=== PATIENT | male | born 1980 | race Two or more races ===

== ENCOUNTER 2016-12-18 19:02 | Emergency (ER) | payer SELFPAY ==
[~2016-12-18] VITALS: Ht 182.9 cm; Wt 112.5 kg
[2016-12-18] MEDS ORDERED: NIFEdipine 10 MG CAP PO ONE (19:30)
[2016-12-18 19:33] LABS: Basophils # (auto) 0.1 uL; Basophils % (auto) 0.6 % (0.0-2.0); Eosinophils # (auto) 0.4 uL; Eosinophils % (auto) 4.1 % (0.0-7.0); Hematocrit 46.8 % (41.0-53.0); Hemoglobin 15.8 g/dL (13.5-17.5); Lymphocytes # (auto) 2.7 uL; Lymphocytes % (auto) 28.1 % (10.0-50.0); Mean Corpuscular Hgb Conc. 33.8 g/dL (32.0-36.0); Mean Corpuscular Volume 88.7 fL (80.0-100.0); Mean Platelet Volume 8.5 fL (7.4-10.4); Monocytes # (auto) 0.7 uL; Monocytes % (auto) 7.5 % (0.0-12.0); Neutrophils # (auto) 5.7 uL; Neutrophils % (auto) 59.7 % (37.0-80.0); Platelet Count (auto) 276 10^3/uL (140-450); Red Cell Distribution Width 14.2 % (11.6-16.0); White Blood Cell 9.5 10^3/uL (4.4-10.8)
[2016-12-18 19:33] LABS: Urine RBC None Seen /hpf (0 - 3)
[2016-12-18 19:43] LABS: Urine Bilirubin Negative (Negative); Urine Blood Negative /uL (Negative); Urine Color Yellow (Yellow); Urine Glucose Normal (Normal); Urine Ketone Negative (Negative); Urine Nitrite Negative (Negative); Urine pH 6.5 (5.0-8.0)
[2016-12-18 19:49] LABS: INR 0.94 (0.9-1.15); Prothrombin Time 10.2 sec (9.37-12.3)
[2016-12-18 19:57] LABS: Albumin 3.9 g/dL (3.4-5.0); Alkaline Phosphatase 83 U/L (45-117); Anion Gap 8 (5-15); Aspartate Aminotransferase 33 U/L (15-37); BUN/Creatinine Ratio 16.2; Bilirubin, Total 1.3 mg/dL (0.2-1.0); Blood Urea Nitrogen 16 mg/dL (7-18); Calcium 8.6 mg/dL (8.5-10.1); Carbon Dioxide 29 mmol/L (21-32); Chloride 102 mmol/L (98-107); GFR African American 110 mL/min; GFR Non-African American 91 mL/min; Glucose 107 mg/dL (74-106); Sodium 139 mmol/L (136-145); Total Protein 7.7 g/dL (6.4-8.2)
[2016-12-19] MEDS ORDERED: HYDROcodone-ACET 5/325MG TAB PO ONE (02:45)
[2016-12-19 04:32] VITALS: BP 139/91
== END 2016-12-19 04:48 | disposition home or self-care (01) ==
LOC: ER 19:12
DX: I10 Essential (primary) hypertension (principal); R51 Headache; R07.9 Chest pain, unspecified; F12.10 Cannabis abuse, uncomplicated; F15.10 Other stimulant abuse, uncomplicated
CPT/HCPCS: 36415; 71010; 80053; 80307; 81001; 84484; 85025; 85610; 85730; 93005

== ENCOUNTER 2025-02-25 18:38 | Emergency (ER) | payer MEDICAID, OTHER ==
--- NOTE | 2025-02-25 19:07 | ED.PDOC ---
History of Present Illness HPI Comments 44-year-old male, with a history of asthma and polysubstance abuse, presents with chief complaint of shortness of breath, which began unprovoked, last night. Use endorsement prior to arrival. Is having any chest pain, cough, congestion, fever, chills, or further associated symptoms. Only significant recent history of CVA with hospital admission at [facility] 1 week ago. Time Seen by MD: 18:55 Primary Care Provider: NONE Reviewed Notes: Nurses Notes, Medications, Allergies Allergies: Coded Allergies: NO KNOWN ALLERGIES (Unverified , 12/14/13) Information Source: Patient Mode of Arrival: Ambulatory Severity: Moderate Timing: Hours Duration: Since onset Prehospital treatment: None Review of Systems: REVIEW OF SYSTEMS: No fever, no chills, or fatigue HEENT: No sore throat, no earache, no congestion, no neck pain. Cardiac: No chest pain. No palpitations. Lungs: Shortness of breath, no cough. GI: No nausea, no vomiting, no diarrhea, no constipation, no abdominal pain : No dysuria, frequency, or urgency. No hematuria. Musculoskeletal: No joint pain , no joint swelling, no extremity edema. Skin: No rash, no itching. Neuro: No headache, no dizziness, no weakness Physical Exam General: Awake, alert and oriented. No acute distress but anxious appearing Skin: Skin in warm, dry and intact. Appropriate color for ethnicity. HEENT: The head is normocephalic and atraumatic. Conjunctivae are clear without exudates or hemorrhage. Sclera is non-icteric. EOM are intact. No signs of nystagmus. Eyelids are normal in appearance without swelling or lesions. Oral mucosa is pink and moist Neck: The neck is supple with normal range of motion. No JVD. Cardiac: Heart rate and rhythm are normal. No murmurs, gallops, or rubs are auscultated. Respiratory: No signs of respiratory distress. Lung sounds are clear in all lobes bilaterally without rales, rhonchi, or wheezes. Abdominal: Abdomen is soft, non-tender without distention, guarding or rigidity. Bowel sounds are present and normoactive in all four quadrants. Extremities: Upper and lower extremities are atraumatic in appearance without deformity or edema. Neurological: The patient is awake, alert and oriented to person, place, and time with normal speech. Speech is clear. There is no facial asymmetry. Psychiatric: Appropriate mood but anxious affect. Good judgement and insight. Past Medical History PAST MEDICAL HISTORY: Asthma Surgical History: Denies all surgeries Family History Family History: Unknown Social History Smoker: Non-Smoker Alcohol: Heavy Drugs: Marijuana, Methamphetamine Lives In: Home Was a procedure done? Was a procedure done?: No Differential Dx Considerations may include: Differential diagnoses considered includebut arenot limited to acute Bronchitis, Asthma, COPD, Pneumothorax, PE, CHF, Pulmonary HTN, Anemia, CO Poisoning, Methemoglobinemia, Hyperventilation, Metabolic Acidosis, Pulmonary Edema, Pneumonia, ACS, Pericardial Tamponade, Anxiety, other Time of 1ST Reevaluation: 19:25 Reevaluation 1ST: Unchanged Patient Education/Counseling: Treatment, Need For Follow Up Family Education/Counseling: No Family Present Departure 1 Departure Time of Disposition: 20:21 Impression: Primary Impression: Shortness of breath Additional Impression: Eloped from emergency department Disposition: LEFT AWOL/ELOPED Condition: Other Comments PATIENT WAS SEEN AND EVALUATED. DISCUSSED PLAN OF CARE WITH THE PATIENT. HE ELOPED FROM THE EMERGENCY DEPARTMENT PRIOR TO COMPLETING EVALUATION. I reviewed the following notes from the pt's past medical encounters: December 14, 2013 and December 18, 2016 encounters for left arm and headache, possible high BP Critical Care Note Critical Care Time?: No Stability Stability form required: No Heart Score Heart Score: Heart Score Response (Comments) Value History N/A 0 EKG N/A 0 Age N/A 0 Risk Factors N/A 0 Troponin N/A 0 Total 0 I personally scribed for AMADOR MCKEON MD ([email or web address]) on 02/25/25 at 19:07. Electronically submitted by Luis Logan ([email or web address]). AMADOR MCKEON MD Feb 25, 2025 19:07
[2025-02-25] MEDS: ALBUTEROL SULF 2.5 MG/0.5ML(0.5%) NEB SOLN NEB ONE (19:10)
== END 2025-02-25 19:41 | disposition left against medical advice (07) ==
LOC: ER 18:38
DX: R06.02 Shortness of breath (principal); J45.909 Unspecified asthma, uncomplicated; F12.90 Cannabis use, unspecified, uncomplicated; F19.90 Other psychoactive substance use, unspecified, uncomplicated; F10.10 Alcohol abuse, uncomplicated; Z86.73 Personal history of transient ischemic attack (TIA), and cerebral infarction without residual deficits; Y90.9 Presence of alcohol in blood, level not specified

== ENCOUNTER 2025-04-05 08:57 | Outpatient (CLI) | payer MEDICAID ==
[2025-04-05 09:10] VITALS: BP 93/65; PULSE 65; RESP 16
[2025-04-05] MEDS ORDERED: IOHEXOL 350 MG/ML 100ML IJ ONE (09:12)
--- NOTE | 2025-04-05 12:27 | DVH ---
CT CHST AB PEL WO CON-NO IV/ORAL INDICATION: R/O DISECTION EXAM DATE: 04/05/2025 09:34 AM COMPARISON: None prior images RADIATION DOSE: CTDIvol: 13.33 mGy, DLP: 966.95 mGy*cm PROCEDURE: Helical CT images were obtained of the chest, abdomen, and pelvis without intravenous cont rast. Sagittal and coronal reconstructions are provided. ORAL CONTRAST: None. ADDITIONAL IMAGES / REFORMATS: None All CT scans at this medical facility are performed using dose modulation techniques as appropriate t o a performed exam including the following: Automated exposure control was utilized; adjustment of th e MA and/or KV according to patient size; and use of iterative reconstruction technique. FINDINGS: CHEST: BONES: Scattered degenerative changes are noted in the visualized osseous structures. CHEST WALL: Normal. SOFT TISSUES:Normal. MEDIASTINUM: Normal. HEART: Normal. VESSELS: Focal aneursmal dilation of the aortic arch to 4.6 cm. LYMPH NODES: Normal. PLEURA: Normal. AIRWAYS: Normal. LUNG: Normal. ABDOMEN AND PELVIS: BONES: Scattered degenerative changes are noted in the visualized osseous structures. LIVER: Normal. GALLBLADDER AND BILIARY TREE: No calcified gallstones. Normal caliber wall. No intra- or extrahepatic biliary ductal dilation. PANCREAS: Normal. SPLEEN: Normal. BOWEL: Normal. Normal appendix. ADRENALS: Normal. KIDNEYS AND URETER: Normal. BLADDER: Normal. REPRODUCTIVE ORGANS: Normal. LYMPH NODES:No lymphadenopathy. PERITONEUM: No ascites or free air. No other fluid collection. VESSELS: Normal RETROPERITONEUM: Normal. ABDOMINAL WALL: Small left inguinal hernia. IMPRESSION: Focal aneursmal dilation of the aortic arch to 4.6 cm. Aortic dissection cannot be excluded without contrast. No prior images, but prior report from 01/08/25 noted a thoraco-abdominal dissection.
== END 2025-04-05 17:00 | disposition home or self-care (01) ==
LOC: Rad HDHVI 08:57
PROVIDERS: ATTEND Internal Medicine Cardiovascular Disease
DX: K40.90 Unilateral inguinal hernia, without obstruction or gangrene, not specified as recurrent (principal); I71.22 Aneurysm of the aortic arch, without rupture; I71.02 Dissection of abdominal aorta; M47.817 Spondylosis without myelopathy or radiculopathy, lumbosacral region
CPT/HCPCS: 71250; 74176; G0463; Q9967

== ENCOUNTER → 2025-04-09 | Outpatient (CLI) | payer MEDICAID | END | disposition home or self-care (01) | LOC: Rad HDHVI 10:43 | PROVIDERS: ATTEND Internal Medicine Cardiovascular Disease | DX: I08.0 Rheumatic disorders of both mitral and aortic valves (principal); I11.9 Hypertensive heart disease without heart failure | CPT/HCPCS: 93306 ==

== ENCOUNTER 2025-04-10 09:23 | Outpatient (CLI) | payer MEDICAID ==
[~2025-04-10] VITALS: Ht 177.8 cm; Wt 100.2 kg
[2025-04-10] MEDS ORDERED: ADENOSINE 90 MG/30 ML INJ IV ONE (09:48)
[2025-04-10] MEDS ORDERED: ADENOSINE 84 MG in GIVE UN-DILUTED 0 ML IV ONE (10:30)
== END 2025-04-10 17:00 | disposition home or self-care (01) ==
LOC: Rad HDHVI 09:23
PROVIDERS: ATTEND Internal Medicine Cardiovascular Disease
DX: I49.1 Atrial premature depolarization (principal); I10 Essential (primary) hypertension; I71.02 Dissection of abdominal aorta; E78.00 Pure hypercholesterolemia, unspecified; E11.9 Type 2 diabetes mellitus without complications; R00.1 Bradycardia, unspecified; R07.89 Other chest pain; R94.31 Abnormal electrocardiogram [ECG] [EKG]; Z82.49 Family history of ischemic heart disease and other diseases of the circulatory system
CPT/HCPCS: 78452; 93017; A9500; J0153

== ENCOUNTER 2025-05-15 15:19 | Outpatient (CLI) | payer MEDICAID | END 2025-05-15 17:00 | disposition home or self-care (01) | LOC: Rad HDHVI 15:19 | PROVIDERS: ATTEND Internal Medicine Cardiovascular Disease | DX: I71.40 Abdominal aortic aneurysm, without rupture, unspecified (principal); I10 Essential (primary) hypertension; Z86.73 Personal history of transient ischemic attack (TIA), and cerebral infarction without residual deficits | CPT/HCPCS: 93880 ==